=== PATIENT | female | born 1950 | race Caucasian/White ===

== ENCOUNTER 2020-11-29 10:29 | Outpatient (CLI) | payer MEDICARE ==
[2020-11-29 11:39] LABS: Hemoglobin 15.5 g/dL (12.0-15.5); Mean Corpuscular HGB CONC 33.4 g/dL (32.0-36.0); Mean Corpuscular Hemoglobin 32.9 pg (27.0-33.0); Mean Corpuscular Volume 98.5 fl (81.6-98.3); Platelet Count 215 10x3/uL (150-450); RBC Distribution Width 12.2 % (11.5-14.5); Red Blood Cell (RBC) Count 4.71 10x6/uL (3.90-5.03)
[2020-11-29 12:21] LABS: Anion Gap 16 mmol/L (10-20); BUN (Urea Nitrogen) 19 mg/dL (9.8-20.1); Calc. Creatinine Clearance 0 mL/min (70-130); Calcium 10.2 mg/dL (7.8-10.44); Carbon Dioxide 23 mmol/L (23-31); Chloride 107 mmol/L (98-107); Glucose 112 mg/dL (80-115); Potassium 4.5 mmol/L (3.5-5.1); Sodium 141 mmol/L (136-145)
[2020-11-29 18:42] LABS: SARS-CoV-2 PCR by NAA Not Detected (NotDetected)
== END 2020-11-29 10:30 | disposition home or self-care (01) ==
LOC: LABBT 10:29
PROVIDERS: ATTEND Neurological Surgery
DX: Z01.818 Encounter for other preprocedural examination (principal); M43.16 Spondylolisthesis, lumbar region; M54.5 Low back pain; Z20.822 Contact with and (suspected) exposure to COVID-19
CPT/HCPCS: 80048; 85027; 93005; U0003; U0005; 93010

== ENCOUNTER 2020-12-04 05:45 | Day surgery (SDC) | payer MEDICARE ==
[2020-11-30 14:35] VITALS: BMI 30.5
[2020-12-04] MEDS ORDERED: Clindamycin/D5W 900 mg/50 ml Premix Bag ONE (06:24)
[2020-12-04] MEDS ORDERED: Levofloxacin 500 mg/D5W 100 ml Premix Bag ONE (06:24)
[2020-12-04] MEDS ORDERED: Bupivacaine PF 0.5% 30 ML VIAL ONE (06:35)
[2020-12-04] MEDS ORDERED: Thrombin 5000 UNITS/5 ML VIAL ONE (06:35)
[2020-12-04] MEDS ORDERED: EPINEPHrine 1 MG/ML AMP ONE (06:35)
[2020-12-04] MEDS ORDERED: Lidocaine 1% w/Epinephrine 1:100K 20 ML VIAL ONE (06:44)
[2020-12-04] MEDS ORDERED: Fentanyl 100 MCG/2 ML VIAL ONE ×5 (06:49→11:12)
[2020-12-04] MEDS ORDERED: HYDROmorphone 0.5 MG/0.5 ML SYRINGE ONE (06:49)
[2020-12-04] MEDS ORDERED: Midazolam HCl 2 mg/2 ml Vial ONE (06:55)
[2020-12-04] MEDS ORDERED: Lidocaine 2% PF 5 ML VIAL ONE (07:02)
[2020-12-04] MEDS ORDERED: Rocuronium Bromide 10 MG/ML (10ML VIAL) ONE (07:02)
[2020-12-04] MEDS ORDERED: ePHEDrine 50 MG/ML VIAL ONE (07:02)
[2020-12-04] MEDS ORDERED: Ondansetron PF 4 MG/2 ML Vial ONE (07:02)
[2020-12-04] MEDS ORDERED: PROPOFOL 200 MG/20 ML VIAL ONE (07:02)
[2020-12-04] MEDS ORDERED: diphenhydrAMINE 50 MG/ML VIAL ONE (07:02)
[2020-12-04] MEDS ORDERED: Glycopyrrolate 0.2 MG/ML 5 ML SYRINGE ONE (07:02)
[2020-12-04] MEDS ORDERED: PHENYLEPHRINE-NS 100 MCG/ML 10 ML SYRINGE ONE (07:02)
[2020-12-04] MEDS ORDERED: Dexamethasone 20 MG/5 ML VIAL ONE (07:02)
[2020-12-04] MEDS ORDERED: SUGAMMADEX SODIUM 200 MG/2 ML VIAL ONE (10:05)
[2020-12-04] MEDS ORDERED: Meperidine HCl/PF 25 MG/ML VIAL ONE (10:55)
[2020-12-04] MEDS ORDERED: tiZANidine HCl 4 MG TAB ONE (11:03)
[2020-12-04] MEDS ORDERED: HYDROcodone/Acetaminophen 5/325 mg Tablet ONE (13:08)
== END 2020-12-04 13:15 | disposition home or self-care (01) ==
LOC: SDC 05:45
PROVIDERS: ATTEND Neurological Surgery
PROC: 0SG3071 Fusion of Lumbosacral Joint with Autologous Tissue Substitute, Posterior Approach, Posterior Column, Open Approach (ICD-10-PCS; principal; 2020-12-04)
DX: M43.17 Spondylolisthesis, lumbosacral region (principal); M54.16 Radiculopathy, lumbar region; I10 Essential (primary) hypertension; E78.5 Hyperlipidemia, unspecified; J45.909 Unspecified asthma, uncomplicated; G43.909 Migraine, unspecified, not intractable, without status migrainosus; M19.90 Unspecified osteoarthritis, unspecified site; F17.200 Nicotine dependence, unspecified, uncomplicated; Z79.899 Other long term (current) drug therapy; Z88.0 Allergy status to penicillin; Z91.013 Allergy to seafood
CPT/HCPCS: 76000; C1713; C1768; J0171; J1100; J1170; J1200; J1956; J2001; J2175; J2250; J2405; J2704; J3010; J3490; S0020